=== PATIENT | female | born 1985 | race Caucasian/White ===

== ENCOUNTER 2019-06-30 21:09 | Emergency (ER) | payer OTHER ==
--- NOTE | 2019-06-30 22:37 | ER Document Report ---
ED Extremity Problem, Lower - General Chief Complaint: Ankle Pain Stated Complaint: ANKLE INJURY Time Seen by Provider: 06/30/19 22:31 Primary Care Provider: YANDEL BOURGEOIS JR, DO [ACTIVE PROVISIONAL STAFF] - Follow up in 1 week TRAVEL OUTSIDE OF THE [place] IN LAST 30 DAYS: No - HPI Notes: 33-year-old female to the emergency department with complaints of right ankle pain that started tonight after sustaining an injury. She states that she was walking when her ankle gave out and twisted under her. She states that she did not fall or have any other injuries. She states initially she had pain and difficulty ambulating on the ankle but has been able to bear weight since. She has been able to walk and bear weight in the emergency department tonight. She declines any pain control tonight in the ER. - Related Data Allergies/Adverse Reactions: No Known Allergies Allergy (Unverified 06/30/19 22:26) Past Medical History - General Information source: Patient - Social History Smoking Status: Never Smoker Chew tobacco use (# tins/day): No Frequency of alcohol use: Occasional Drug Abuse: None Family History: Reviewed & Not Pertinent Patient has suicidal ideation: No Patient has homicidal ideation: No Review of Systems - Review of Systems Constitutional: denies: Chills, Fever EENT: No symptoms reported Cardiovascular: denies: Chest pain, Palpitations Respiratory: denies: Cough, Short of breath Gastrointestinal: denies: Abdominal pain, Diarrhea, Nausea, Vomiting Musculoskeletal: Joint pain - Right ankle pain and swelling, Joint swelling Skin: No symptoms reported Hematologic/Lymphatic: No symptoms reported Neurological/Psychological: No symptoms reported -: Yes All other systems reviewed and negative Physical Exam - Vital signs Vitals: Temp Pulse Resp BP Pulse Ox 98.0 F 101 H 20 191/112 H 98 06/30/19 21:49 06/30/19 21:49 06/30/19 21:49 06/30/19 21:49 06/30/19 21:49 Selected Entries 06/30/19 06/30/19 06/30/19 21:49 22:20 23:45 Respiratory 20 Rate Blood Pressure 152/93 H Blood Pressure 162/110 H [Right] O2 Sat by Pulse 98 97 Oximetry Interpretation: Hypertensive - General General appearance: Appears well, Alert - HEENT Head: Normocephalic, Atraumatic Eyes: Normal Pupils: PERRL - Respiratory Respiratory status: No respiratory distress Chest status: Nontender Breath sounds: Normal Chest palpation: Normal - Cardiovascular Rhythm: Regular Heart sounds: Normal auscultation Murmur: No - Abdominal Inspection: Normal Distension: No distension Bowel sounds: Normal Tenderness: Nontender Organomegaly: No organomegaly - Back Back: Normal, Nontender - Extremities Notes: To the right ankle there is lateral malleolus are edema and tenderness to palpation. There is no ecchymosis. There is no gross deformity. There is no tenderness to the top of the foot or to the heel. Patient can wiggle all toes. She has 5 out of 5 strength in dorsiflexion and plantar flexion against resistance. She has a nontender right knee, right hip. She can ambulate on the foot but with a slight limp. DP pulses are intact and equal. Cap refill is less than 2 seconds. - Neurological Neuro grossly intact: Yes Cognition: Normal Orientation: AAOx4 [place] Coma Scale Eye Opening: Spontaneous [place] Coma Scale Verbal: Oriented [place] Coma Scale Motor: Obeys Commands [place] Coma Scale Total: 15 Speech: Normal Motor strength normal: LUE, RUE, LLE, RLE Sensory: Normal - Psychological Associated symptoms: Normal affect, Normal mood - Skin Skin Temperature: Warm Skin Moisture: Dry Skin Color: Normal Course - Re-evaluation Re-evalutation: Impression: Right ankle sprain. No fracture seen on x-ray by myself. We will place the patient in splint and discharge home. Encouraged rest, ice, compression, elevation. We will give Naprosyn for pain. Will give orthopedic follow-up. Patient agrees with the plan. - Vital Signs Vital signs: Temp Pulse Resp BP Pulse Ox 98.1 F 96 21 H 152/93 H 97 06/30/19 23:45 06/30/19 23:45 06/30/19 23:45 06/30/19 23:45 06/30/19 23:45 - Diagnostic Test Radiology reviewed: Image reviewed, Reports reviewed Discharge - Discharge Clinical Impression: Ankle sprain Qualifiers: Encounter type: initial encounter Involved ligament of ankle: unspecified ligament Laterality: right Qualified Code(s): S93.401A - Sprain of unspecified ligament of right ankle, initial encounter Right ankle pain Qualifiers: Chronicity: acute Qualified Code(s): M25.571 - Pain in right ankle and joints of right foot Condition: Stable Disposition: HOME, SELF-CARE Instructions: Ice & Elevation ([facility]), Sprained Ankle ([facility]) Additional Instructions: REST, ICE, ELEVATE THE ANKLE. ICE FOR 20 MINUTES THREE TIMES A DAY. FOLLOW UP WITH ORTHOPEDIST. Prescriptions: Naproxen [Naprosyn 250 mg Tablet] 500 mg PO DAILY PRN #30 tablet PRN Reason: Forms: Return to Work Referrals: YANDEL BOURGEOIS JR, DO [ACTIVE PROVISIONAL STAFF] - Follow up in 1 week
--- NOTE | 2019-06-30 23:37 | RADIOLOGY REPORT (SQ) ---
EXAM DESCRIPTION: XR ANKLE 3 OR MORE VIEWS COMPLETED DATE/TME: 06/30/2019 22:34 CLINICAL HISTORY: ankle injury COMPARISON: None. FINDINGS: 3 views of the right ankle. No acute fracture or dislocation. Normal osseous mineralization. Tibial plafond and talar dome have appropriate alignment. Plantar calcaneal spur. IMPRESSION: 1. No acute fracture or dislocation.
[2019-06-30 23:54] VITALS: BP 152/93
== END 2019-06-30 23:45 | disposition home or self-care (01) ==
LOC: ER 21:09
PROC: 2W3QX1Z Immobilization of Right Lower Leg using Splint (ICD-10-PCS; principal; 2019-06-30)
DX: S93.401A Sprain of unspecified ligament of right ankle, initial encounter (principal); M25.571 Pain in right ankle and joints of right foot; M79.89 Other specified soft tissue disorders; X50.1XXA Overexertion from prolonged static or awkward postures, initial encounter
CPT/HCPCS: 99283